=== PATIENT | male | born 1995 | race Caucasian/White ===

== ENCOUNTER 2020-04-15 00:46 | Emergency (ER) | payer OTHER ==
[2020-04-15] MEDS ORDERED: DIPHTH,PERTUSS(ACELL),TET 0.5 ML DISP.SYRIN IM ONE ×2 (01:10→01:35)
[2020-04-15 01:22] VITALS: TEMP 98.4; BMI 25.7
--- NOTE | 2020-04-15 01:23 | PDOC ---
History of Present Illness - General Chief Complaint: Injury Stated Complaint: Y Time Seen by Provider: 04/15/20 00:51 History Source: Patient Exam Limitations: Intoxication (able to provide reliable hx ) - History of Present Illness Initial Comments: 04/15/20 01:21 24M w/o PMH presenting with facial trauma after falling off skateboard and faceplanting on road. Pt hit maxilla and nose, denies LOC. +intoxication, endorses having 1 beer and 2 shots. States he has scraps on the right side but no bony pain or deformities. Endorses loose teeth. Denies difficulty breathing. Unknown last tetanus. Past History - Medical History Allergies/Adverse Reactions: Allergies Allergy/AdvReac Type Severity Reaction Status Date / Time acetaminophen [From Tylenol] Allergy Verified 04/15/20 02:28 aspirin Allergy Verified 04/15/20 01:17 Home Medications: Ambulatory Orders NK [No Known Home Medication] 04/15/20 - Psycho-Social/Smoking History Smoking History: Never smoked - Substance Abuse Hx (Audit-C & DAST Scrn) How often the patient has a drink containing alcohol: Monthly or less Number of drinks the patient has on a typical day: 3 or 4 How often the patient has six or more drinks on one occasion: Never Score: In Men: 4 or > Positive; In Women: 3 or > Positive: 2 Screen Result (Pos requires Nsg. Audit-10AR): Negative In the last yr the pt used illegal drug/Rx for NonMed reason: Yes Score: Yes response is considered Positive: 1 Screen Result (Positive result requires Nsg. DAST-10): Positive Review of Systems - Review of Systems Comments:: 04/15/20 05:53 CONSTITUTIONAL: Denies F / C HEENT: +facial trauma. Denies changes in vision / hearing RESP: Denies SOB, cough, orthopnea, BRAUN CARD: Denies chest pain, palpitations GI: Denies N / V / D, abdominal pain, bloody stool : Denies dysuria NEURO: Denies numbness, tingling, weakness MSK: Denies neck/back pain, bony pain SKIN: + scrapes *Physical Exam - Vital Signs Last Vital Signs Temp Pulse Resp BP Pulse Ox 98.4 F 100 H 20 149/84 99 04/15/20 01:14 04/15/20 01:14 04/15/20 01:14 04/15/20 01:14 04/15/20 01:14 - Physical Exam 04/15/20 05:53 GEN: Well appearing, moderately intoxicated, NAD, comfortable. AAOx3. HEENT: No obvious deformities of the skull. EOMI, PERRL. Slight nasal bone deformity with superficial abrasion, no active bleeding. Dried blood around the nares, no septal hematomas appreciated. No facial asymmetry. slightly loose tooth #8, able to break tongue depressor b/l. Moist mucous membranes. EAC and TMs clear. Normal voice. Supple neck w/ FROM, neg TTP midline. CV: S1/S2, RRR, no m/r/g LUNG: CTAB, no wheezes, crackles, rales, rhonchi. GI: Soft, ndnt, +BS, no guarding, no rebound. No masses. MSK: No LE edema. No obvious bony deformities of all extremities. No TTP of the UE and LE b/l. BACK: No obvious deformities, no step offs, no midline TTP. There is no pelvic instability NEURO: Moving all extremities well. 5/5 UE strength b/l. 5/5 LE strength b/l. Sensation symmetric and intact throughout. Ambulates w/ normal gait. PSYCH: moderate intoxication but following commands, cooperative, speaking full and coherent sentences. Fluent. SKIN: Superficial abrasions of the right flank, right elbow, and right knee. Warm, dry, no rashes appreciated. ED Treatment Course - RADIOLOGY Radiology Studies Ordered: Category Date Time Status CERVICAL SPINE CT W/O CONTR [CT] Stat CT Scan 04/15/20 01:[address] W/O CONTRAST [CT] Stat CT Scan 04/15/20 01:[address] WITHOUT CONTRAST [CT] Stat CT Scan 04/15/20 01:10 Ordered Medical Decision Making - Medical Decision Making 04/15/20 05:53 24M w/ nasal abrasion and facial trauma s/p fall from skateboard and subsequent faceplant. Slightly loose #8 tooth, neg bite test. Abrasion and swelling of the nose. Intox but reliable historian. - CT Head, Neck, and Facial bones - tetanus - pain ctrl 04/15/20 02:41 IT issue creating delays in CT reads 04/15/20 04:[address] [facility] CT HEAD/NECK/FACE EXAM: CERVICAL SPINE CT W/O CONTR HISTORY: Trauma COMPARISON: None. FINDINGS: There is no fracture, subluxation, prevertebral soft tissue swelling or significant degenerative changes. Minimal biapical lung scarring is noted. IMPRESSION: No fracture. THIS DOCUMENT HAS BEEN ELECTRONICALLY SIGNED Gael Ramsey MD 04/15/2020 03:56 EST EXAM: HEAD CT WITHOUT CONTRAST HISTORY: Trauma COMPARISON: None. FINDINGS: The ventricular system is midline and nondilated. The sulcal pattern is normal for the patient's age. There is no bleed, mass, extra-axial fluid collection or mass effect. There is a comminuted nasal bridge fracture. No skull fracture or skull lesion is identified. The visualized paranasal sinuses and mastoid air cells are clear. IMPRESSION: Comminuted nasal bridge fracture without skull fracture or intracranial hemorrhage. THIS DOCUMENT HAS BEEN ELECTRONICALLY SIGNED Gael Ramsey MD 04/15/2020 04:22 EST EXAM: FACIAL BONES CT W/O CONTRAST HISTORY: Trauma COMPARISON: None. FINDINGS: The intraorbital contents are intact. The sinuses and visualized mastoid air cells are well aerated. There is a comminuted nasal bridge fracture. The anterior vomer is fractured. IMPRESSION: Comminuted nasal bridge fracture and anterior vomer fracture THIS DOCUMENT HAS BEEN ELECTRONICALLY SIGNED Gael Ramsey MD 04/15/2020 04:37 EST Dental f/u ENT f/u This ED does not have dental kit; provided precautions regarding loose tooth and immediate dental f/u precautions regarding nasal bone fractures provided DC home questions and concerns addressed pt ambulatory and accompanied out by sober friend. Discharge - Discharge Information Problems reviewed: Yes Clinical Impression/Diagnosis: Nasal bone fracture, Fall Condition: Stable Disposition: HOME - Admission No - Follow up/Referral Referrals: Josr Walker MD [Staff Physician] - - Patient Discharge Instructions Patient Printed Discharge Instructions: DI for Nose Fracture Additional Instructions: You have a broken nose. DO NOT BLOW YOUR NOSE. Avoid putting foreign objects in the nose. Avoid picking the nose. You have a loose tooth (#8). Only eat soft/pureed foods and liquids. Follow up with your dentist today. If you cannot see your dentist today, you should go to the [facility] at [address] [place] [address] [place] [address]. Follow up with ENT in the next 3-5 days regarding the broken nose. We are referring to an ENT, please call the attached number and schedule an appointment. A copy of your CAT scan results were provided to you. Take ibuprofen for pain. Return to the Emergency Department if you experience new or worsening symptoms - Post Discharge Activity
[2020-04-15] MEDS ORDERED: ACETAMINOPHEN 500 MG TABLET (FP) PO ONE (02:23)
--- NOTE | 2020-04-15 02:58 | PDOC ---
Documentation entered by Hiro Solares SCRIBE, acting as scribe for Romina Stafford MD. Romina Stafford MD: This documentation has been prepared by the Sujatha walsh Nirvannie, SCRIBE, under my direction and personally reviewed by me in its entirety. I confirm that the documentation accurately reflects all work, treatment, procedures, and medical decision making performed by me. Attending Attestation - Resident Resident Name: Hilario Chapman - ED Attending Attestation I have performed the following: I have examined & evaluated the patient, The case was reviewed & discussed with the resident, I agree w/resident's findings & plan, Exceptions are as noted - HPI HPI: 04/15/20 01:23 The patient is a 24 year old male with no significant past medical history who presents to the ED s/p fall. Per patient, he had many alcoholic beverages then attempted to ride a skateboard at which he face-planted off of it hitting his head and nose. He denies any LOC. Not on any a/c. States he feels like his bite is normal but reports loose from tooth. Allergies: ASA - Physicial Exam PE: 04/15/20 02:54 General: non-toxic appearing HEENT: +swelling over nasal septum with dried blood, no septal hematoma, no racoon eyes, no barrios sign, + slight avulsion of tooth 11 with small amount of dried blood near gingiva, bite normal Neck: supple, no midline tenderness, FROM Neuro: awake, alert, responds appropriately to questions, ambulatory with steady gait, no focal deficits - Medical Decision Making 04/15/20 02:56 24 yo M with mechanical fall and facial trauma, suspicious for nasal fracture, also with slightly avulsed tooth. Plan: -pain control as needed -CT head, c-spine, face -tetanus -will attempt to splint tooth if material available for splinting -anticipate d/c home with return precautions, patient states he can follow up with his dentist today This clinical encounter is taking place during a federal and state health care emergency attributable to the novel Noble Virus pandemic. The Specimen Accessioner of the Department of Health and Human Services has declared, pursuant to the Public Health Service Act 319F-3 (42 U.S.C. 247d-6d), that a covered persons activities related to medical countermeasures against COVID-19 will be immune from liability under Federal and State law. Discharge - Discharge Information Problems reviewed: Yes Clinical Impression/Diagnosis: Nasal bone fracture, Fall Condition: Stable Disposition: HOME - Follow up/Referral Referrals: Josr Walker MD [Staff Physician] - - Patient Discharge Instructions Patient Printed Discharge Instructions: DI for Nose Fracture Additional Instructions: You have a broken nose. DO NOT BLOW YOUR NOSE. Avoid putting foreign objects in the nose. Avoid picking the nose. You have a loose tooth (#8). Only eat soft/pureed foods and liquids. Follow up with your dentist today. If you cannot see your dentist today, you should go to the [facility] at [address] [place] [address] , [place] [address]. Follow up with ENT in the next 3-5 days regarding the broken nose. We are referring to an ENT, please call the attached number and schedule an appointment. A copy of your CAT scan results were provided to you. Take ibuprofen for pain. Return to the Emergency Department if you experience new or worsening symptoms - Post Discharge Activity
[2020-04-15 05:42] VITALS: BP 122/66; PULSE 87
== END 2020-04-15 05:41 | disposition home or self-care (01) ==
LOC: JER 00:46
PROC: 3E0234Z Introduction of Serum, Toxoid and Vaccine into Muscle, Percutaneous Approach (ICD-10-PCS; principal; 2020-04-15)
DX: S02.2XXA Fracture of nasal bones, initial encounter for closed fracture (principal); V00.131A Fall from skateboard, initial encounter
CPT/HCPCS: 70450-TC; 70486-TC; 72125-TC; 90715; 99284-25